=== PATIENT | female | born 1930 | race African-American/Black ===

== ENCOUNTER 2019-10-28 22:07 | Inpatient (IN) | payer MEDICARE ==
[~2019-10-28] VITALS: Ht 162.6 cm; Wt 47.2 kg
--- NOTE | 2019-10-28 22:34 | NUR ---
at bedside for MSE
[2019-10-28] MEDS ORDERED: HYDR2TAB4 PO (22:45)
[2019-10-28] MEDS ORDERED: CHOL10002 PO (22:45)
[2019-10-28] MEDS ORDERED: CLON0.1T PO (22:45)
[2019-10-28] MEDS ORDERED: MULT-1119 PO (22:45)
[2019-10-28] MEDS ORDERED: CALC-555 PO (22:45)
[2019-10-28] MEDS ORDERED: POTA10CA43 PO (22:45)
[2019-10-28] MEDS ORDERED: DOCU-141 PO (22:45)
[2019-10-28] MEDS ORDERED: ASCO500C18 PO (22:45)
[2019-10-28] MEDS ORDERED: ACET-2154 PO (22:45)
[2019-10-28] MEDS ORDERED: LOSA25TA27 PO (22:45)
[2019-10-28] MEDS ORDERED: CHOL400T32 PO (22:45)
[2019-10-28] MEDS ORDERED: FURO-152 PO (22:45)
[2019-10-28] MEDS ORDERED: DEXT15DR6 OP (22:45)
[2019-10-28] MEDS ORDERED: DILT-3 PO (22:45)
[2019-10-28] MEDS ORDERED: SENN-261 PO ×2 (22:45)
[2019-10-28 23:01] LABS: EOSINOPHILS # (AUTO) 0.1 K/uL (0.0-0.7); EOSINOPHILS % (AUTO) 1.1 % (0.0-7.0); LYMPHOCYTES # (AUTO) 0.7 K/uL (20.0-40.0); MEAN CORPUSCULAR VOLUME 87.3 fL (75.5-95.3); MONOCYTES # (AUTO) 1.3 K/uL (2.0-10.0)
[2019-10-28 23:03] LABS: CARBON DIOXIDE 34 mmol/L (21-32); CHLORIDE 98 mmol/L (98-107); CREATININE 2.3 mg/dL (0.6-1.3); GLUCOSE 100 mg/dL (74-106); POTASSIUM 3.9 mmol/L (3.5-5.1); UREA NITROGEN, BLOOD 31 mg/dL (7-18)
--- NOTE | 2019-10-28 23:05 | NUR ---
IV placed in right forearm 20 g saline locked, blood sent to lab
[2019-10-28 23:08] LABS: BASOPHILS % (AUTO) 0.2 % (0.0-2.0); HEMOGLOBIN 10.4 g/dL (10.9-14.3); LYMPHOCYTES % (AUTO) 7.7 % (20.5-51.5); MEAN CORPUSCULAR HEMOGLOBIN 28.3 uug (24.7-32.8); MEAN CORPUSCULAR HGB CONC 32 g/dL (32.3-35.6); MONOCYTES % (AUTO) 14.4 % (0.0-11.0); NEUTROPHILS # (AUTO) 7.1 K/uL (1.8-8.9); NEUTROPHILS % (AUTO) 76.6 % (38.5-71.5); PLATELET COUNT (AUTO) 276 K/uL (179-408); RED BLOOD CELL COUNT(AUTO) 3.67 MIL/uL (3.63-4.92); WHITE BLOOD COUNT (AUTO) 9.3 K/uL (3.8-11.8)
[2019-10-28 23:19] LABS: ALANINE AMINOTRANSFERASE 30 U/L (14-59); ALKALINE PHOSPHATASE 116 U/L (50-136); ASPARTATE AMINOTRANSFERASE 47 U/L (15-37); BILIRUBIN,DIRECT 0.1 mg/dL (0.0-0.2); BILIRUBIN,TOTAL 0.4 mg/dL (0.2-1.0); TOTAL PROTEIN, SERUM 8.1 g/dL (6.4-8.2)
[2019-10-28 23:34] LABS: *BILIRUBIN,URIN NEGATIVE (NEGATIVE); *BLOOD, URINE 1+ (NEGATIVE); *CLARITY,URINE CLEAR (CLEAR); *COLOR,URINE YELLOW (YELLOW); *KETONES,URINE NEGATIVE (NEGATIVE); *UROBILINOGEN,URINE 0.2 E.U./dl (NORMAL); LEUKOCYTE ESTERASE ,URINE NEGATIVE (NEGATIVE); NITRITE, URINE NEGATIVE (NEGATIVE); PH,URINE 5.5 (5.0-8.0); UGLUCOSE NEGATIVE (NEGATIVE)
--- NOTE | 2019-10-28 23:59 | NUR ---
no signs of distress noted
[2019-10-29] MEDS ORDERED: IV NS 1000 ML 1,000 ML IV ONE
[2019-10-29 00:17] LABS: BACTERIA,URINE NONE SEEN /HPF (NONE SEEN); SQUAMOUS EPITHELIAL CELL,UR MODERATE /HPF (NONE SEEN); WBC,URINE 0-3 /HPF (0-3)
--- NOTE | 2019-10-29 00:28 | NUR ---
IV fluids in progress, no complaints of N/V, no complaints of pain, no signs of distress noted
[2019-10-29] MEDS ORDERED: IV NS 1000 ML 1,000 ML IV PRN (00:34)
[2019-10-29] MEDS ORDERED: ACETAMINOPHEN 325 MG TABLET PO PRN (00:45)
[2019-10-29] MEDS ORDERED: Z GUARD REMEDY PASTE 57 GM TUBE TOP PRN (00:45)
[2019-10-29] MEDS ORDERED: TEMAZEPAM 7.5 MG CAPSULE PO PRN (00:45)
[2019-10-29] MEDS ORDERED: MAGNESIUM HYDROXIDE 30 ML LIQUID UDC PO PRN (00:45)
[2019-10-29] MEDS ORDERED: HYDROCODONE/APAP 5-325MG TABLET PO PRN (00:45)
--- NOTE | 2019-10-29 02:10 | NUR ---
ASSISTED TO RESTROOM AT THIS TIME, AWAITING RESULTS FOR COVID ANTIGEN TEST
--- NOTE | 2019-10-29 03:20 | NUR ---
patient noted resting in bed, no signs of distress, vitals WNL
--- NOTE | 2019-10-29 04:08 | NUR ---
report given to Wilbert RICE at this time
--- NOTE | 2019-10-29 04:25 | NUR ---
Pt. admitted to tele unit room 317 , under care of Dr. Mak Belongs List completed and all belonging sent with patient no signs of distress noted, vitals signs WNL
--- NOTE | 2019-10-29 04:30 | NUR ---
Received patient awake and alert x2. Patient shows no signs or symptoms of distress at this time. NSR on tele monitor. 20g IV heplock on right forearm. Pt complains of having nausea at facility but denies having any at this time. Admitting orders received from Dr. Underwood and will be carried out. Pt refuses to change into hospital gown at this time. Side rails x2 are up. Bed set to lowest position. Call light within reach. Will continue to monitor patient.
[2019-10-29 04:55] VITALS: BP 156/74
[2019-10-29] MEDS: PANTOPRAZOLE SODIUM 40 MG TABLET.DR PO SCH (06:26)
--- NOTE | 2019-10-29 06:31 | NUR ---
Patient shows no signs or symptoms of distress at this time. NSR on tele monitor. Will endorse patient to day shift nurse in stable condition.
--- NOTE | 2019-10-29 08:00 | NUR ---
Pt in bed awake AOx2 on O2 @ 2L sat 85-88%, increased to 3L 90%, denies SOB or dyspnea. Pt is hard of hearing, hearing aid not working d/t no battery, placed inside her walker. On tele SR denied chest pain. Oriented to room and unit. Bed locked in lowest position with siderails 2x up. Bed alarm on. Call light and phone within reach.
[2019-10-29 08:27] VITALS: BP 144/79
--- NOTE | 2019-10-29 09:57 | NUR ---
Informed Dr. Hermosillo to reconcile medications, aware
[2019-10-29] MEDS ORDERED: POLYVINYL ALCOHOL OPHT DROPS 15 ML BOTTLE EACHEYE PRN (14:00)
[2019-10-29] MEDS ORDERED: hydrALAZINE HCL 25 MG TABLET PO PRN ×2 (14:20→19:00)
[2019-10-29] MEDS: DILTIAZEM HCL CD 240 MG CAP.SR.24H PO SCH (15:07)
[2019-10-29 15:52] VITALS: BP 170/88
[2019-10-29] MEDS: DOCUSATE SODIUM 100 MG CAPSULE PO SCH (16:28)
[2019-10-29] MEDS: CALCIUM CARB/VITAMIN D 500MG-200UNITS TABLET PO SCH (16:28)
[2019-10-29] MEDS: CLONIDINE HCL 0.1 MG TABLET PO SCH (16:28)
[2019-10-29] MEDS ORDERED: FUROSEMIDE 20 MG/2 ML VIAL IV ONE (19:00)
[2019-10-29] MEDS ORDERED: AMLODIPINE 5 MG TABLET PO SCH (19:00)
--- NOTE | 2019-10-29 19:45 | NUR ---
Received patient asleep. Patient shows no signs or symptoms of distress at this time. NSR on tele monitor. Vital signs stable. Bed set to lowest position. Call light within reach. Side rails X2 are up. Will continue to monitor patient.
[2019-10-29 20:00] VITALS: BP 138/87
[2019-10-30] VITALS (7 sets, daily range): BP systolic 110–144; BP diastolic 67–77
[2019-10-30] MEDS: PANTOPRAZOLE SODIUM 40 MG TABLET.DR PO SCH (06:17)
--- NOTE | 2019-10-30 06:42 | NUR ---
Patient shows no signs or symptoms of distress at this time. Vital signs stable. NSR on tele monitor. Will endorse patient to day shift nurse in stable condition.
[2019-10-30 06:43] LABS: IRON, SERUM 33 ug/dL (50-175)
[2019-10-30 06:57] LABS: THYROID STIMULATING HORMONE 1.006 mIU/mL (0.358-3.740)
[2019-10-30 07:00] LABS: BASOPHILS % (AUTO) 0.8 % (0.0-2.0); EOSINOPHILS # (AUTO) 0.2 K/uL (0.0-0.7); EOSINOPHILS % (AUTO) 3.2 % (0.0-7.0); HEMATOCRIT 33.8 % (31.2-41.9); HEMOGLOBIN 10.8 g/dL (10.9-14.3); LYMPHOCYTES # (AUTO) 0.6 K/uL (20.0-40.0); LYMPHOCYTES % (AUTO) 10.5 % (20.5-51.5); MEAN CORPUSCULAR HEMOGLOBIN 28.2 uug (24.7-32.8); MEAN CORPUSCULAR HGB CONC 32 g/dL (32.3-35.6); MEAN CORPUSCULAR VOLUME 88.5 fL (75.5-95.3); MONOCYTES # (AUTO) 0.7 K/uL (2.0-10.0); MONOCYTES % (AUTO) 12.7 % (0.0-11.0); NEUTROPHILS # (AUTO) 4.3 K/uL (1.8-8.9); NEUTROPHILS % (AUTO) 72.8 % (38.5-71.5); PLATELET COUNT (AUTO) 288 K/uL (179-408); RED BLOOD CELL COUNT(AUTO) 3.82 MIL/uL (3.63-4.92); WHITE BLOOD COUNT (AUTO) 5.9 K/uL (3.8-11.8)
[2019-10-30 07:16] LABS: CARBON DIOXIDE 32 mmol/L (21-32); CHLORIDE 103 mmol/L (98-107); CREATININE 2.1 mg/dL (0.6-1.3); FERRITIN 186 ng/mL (8-252); GLUCOSE 80 mg/dL (74-106); MAGNESIUM 1.5 mg/dL (1.8-2.4); PHOSPHOROUS 4.7 mg/dL (2.5-4.9); POTASSIUM 4.1 mmol/L (3.5-5.1); UREA NITROGEN, BLOOD 25 mg/dL (7-18)
--- NOTE | 2019-10-30 08:00 | NUR ---
Pt in bed asleep, arousable to touch and light pain, AOx3. On O2 @ 2L with no SOB or distress noted at this time. On tele SR, denies chest pain. IV on left FA 22g flushed and patent. Bed locked in lowest position with siderails 2x up. Call light and telephone within reach.
[2019-10-30 08:09] LABS: ALANINE AMINOTRANSFERASE 30 U/L (14-59); ALKALINE PHOSPHATASE 106 U/L (50-136); ASPARTATE AMINOTRANSFERASE 45 U/L (15-37); BILIRUBIN,TOTAL 0.3 mg/dL (0.2-1.0); CARBON DIOXIDE 32 mmol/L (21-32); CHLORIDE 103 mmol/L (98-107); CHOLESTEROL 174 mg/dL (<200); CREATININE 2.1 mg/dL (0.6-1.3); GLUCOSE 82 mg/dL (74-106); HDL CHOLESTEROL 38 mg/dL (40-60); POTASSIUM 4.1 mmol/L (3.5-5.1); TOTAL PROTEIN, SERUM 7.7 g/dL (6.4-8.2); TRIGLYCERIDES 109 MG/DL (30-150); UREA NITROGEN, BLOOD 24 mg/dL (7-18)
[2019-10-30] MEDS: MAGNESIUM SULFATE/D5W 100 ML IV SCH ×2 (09:23→11:36)
[2019-10-30] MEDS: DOCUSATE SODIUM 100 MG CAPSULE PO SCH ×2 (09:31→17:00)
[2019-10-30] MEDS: DILTIAZEM HCL CD 240 MG CAP.SR.24H PO SCH (09:31)
[2019-10-30] MEDS: ASCORBIC ACID 500 MG TABLET PO SCH (09:31)
[2019-10-30] MEDS: CALCIUM CARB/VITAMIN D 500MG-200UNITS TABLET PO SCH ×3 (09:31→17:00)
[2019-10-30] MEDS: CHOLECALCIFEROL 1,000 UNIT TABLET PO SCH (09:32)
[2019-10-30] MEDS: CLONIDINE HCL 0.1 MG TABLET PO SCH ×2 (09:32→17:00)
[2019-10-30] MEDS: FOLIC ACID/VITAMIN B COMP W-C TABLET PO SCH (09:32)
[2019-10-30] MEDS: OMEGA-3 FATTY ACIDS/FISH OIL CAPSULE PO SCH (09:38)
[2019-10-30] MEDS: FUROSEMIDE 20 MG TABLET PO SCH (11:42)
--- NOTE | 2019-10-30 12:40 | NUR ---
took over care from Julian RN, pt awake alert/oriented x2, hard of hearing, follows commands, lunch tray served, explained plan of care, verbalized understanding within her capabilities, safety measures maintained
[2019-10-30] MEDS: ONDANSETRON 4 MG/2 ML VIAL IV PRN ×2 (14:44→23:53)
--- NOTE | 2019-10-30 14:44 | NUR ---
assisted to BR and voided, also complains of nausea after eating lunch- medicated with Zofran 4mg iv as prn with relief
--- NOTE | 2019-10-30 17:37 | NUR ---
resting in bed, denies of any complaints, call light within reach
--- NOTE | 2019-10-30 19:30 | NUR ---
Received patient lying in bed. AAOx2. In no acute distress. Denies any pain or SOB. On o2 at 2LPM via NC in place. O2 sat at 99%. VS WNL. SR on tele at 63/min. Left FA IV site intact and patent. Safety measure initiated and call ryan within reached.
[2019-10-31 00:02] VITALS: BP 125/63
[2019-10-31 04:50] VITALS: BP 127/62
[2019-10-31] MEDS: PANTOPRAZOLE SODIUM 40 MG TABLET.DR PO SCH (06:12)
--- NOTE | 2019-10-31 06:41 | NUR ---
Slept well last night. AAOx2. In no acute distress. Denies any pain or SOB. Remains on O2 at 2LPM via NC in place. O2 sat at 97%. SR and sinus onel on tele at between 50's to 60's/min. Left FA IV site intact and patent. Needs assessed and attended to. Safety measure maintained and call ryan within reached.
[2019-10-31 06:42] LABS: BASOPHILS % (AUTO) 0.5 % (0.0-2.0); EOSINOPHILS # (AUTO) 0.1 K/uL (0.0-0.7); EOSINOPHILS % (AUTO) 1.3 % (0.0-7.0); HEMATOCRIT 32.2 % (31.2-41.9); HEMOGLOBIN 10.1 g/dL (10.9-14.3); LYMPHOCYTES # (AUTO) 0.5 K/uL (20.0-40.0); LYMPHOCYTES % (AUTO) 8.1 % (20.5-51.5); MEAN CORPUSCULAR HEMOGLOBIN 27.9 uug (24.7-32.8); MEAN CORPUSCULAR HGB CONC 31 g/dL (32.3-35.6); MEAN CORPUSCULAR VOLUME 89.3 fL (75.5-95.3); MONOCYTES # (AUTO) 0.7 K/uL (2.0-10.0); MONOCYTES % (AUTO) 12.5 % (0.0-11.0); NEUTROPHILS # (AUTO) 4.6 K/uL (1.8-8.9); NEUTROPHILS % (AUTO) 77.6 % (38.5-71.5); PLATELET COUNT (AUTO) 259 K/uL (179-408); WHITE BLOOD COUNT (AUTO) 5.9 K/uL (3.8-11.8)
[2019-10-31 06:44] LABS: ALANINE AMINOTRANSFERASE 27 U/L (14-59); ALKALINE PHOSPHATASE 84 U/L (50-136); ASPARTATE AMINOTRANSFERASE 35 U/L (15-37); BILIRUBIN,TOTAL 0.3 mg/dL (0.2-1.0); CARBON DIOXIDE 38 mmol/L (21-32); CHLORIDE 103 mmol/L (98-107); CREATINE KINASE, TOTAL 115 U/L (26-192); CREATININE 2.2 mg/dL (0.6-1.3); GLUCOSE 100 mg/dL (74-106); MAGNESIUM 2.3 mg/dL (1.8-2.4); PHOSPHOROUS 5.9 mg/dL (2.5-4.9); POTASSIUM 4.1 mmol/L (3.5-5.1); TOTAL PROTEIN, SERUM 7.1 g/dL (6.4-8.2); UREA NITROGEN, BLOOD 25 mg/dL (7-18)
[2019-10-31 07:30] VITALS: BP 117/63
--- NOTE | 2019-10-31 08:00 | NUR ---
Received patient in bed, awake alert and verbally responsive. No signs of distress noted. Afebrile. No complain of pain or discomfort. kept clean and comfortable. kept the call light within easy reach. Will continue to monitor.
[2019-10-31] MEDS: FOLIC ACID/VITAMIN B COMP W-C TABLET PO SCH (08:03)
[2019-10-31] MEDS: DOCUSATE SODIUM 100 MG CAPSULE PO SCH ×2 (08:03→16:53)
[2019-10-31] MEDS: DILTIAZEM HCL CD 240 MG CAP.SR.24H PO SCH (08:03)
[2019-10-31] MEDS: OMEGA-3 FATTY ACIDS/FISH OIL CAPSULE PO SCH (08:03)
[2019-10-31] MEDS: CLONIDINE HCL 0.1 MG TABLET PO SCH ×2 (08:03→17:00)
[2019-10-31] MEDS: ASCORBIC ACID 500 MG TABLET PO SCH (08:03)
[2019-10-31] MEDS: CHOLECALCIFEROL 1,000 UNIT TABLET PO SCH (08:04)
[2019-10-31] MEDS: CALCIUM CARB/VITAMIN D 500MG-200UNITS TABLET PO SCH ×3 (08:04→16:52)
[2019-10-31] MEDS: FUROSEMIDE 20 MG TABLET PO SCH (08:04)
[2019-10-31 10:36] LABS: *BILIRUBIN,URIN NEGATIVE (NEGATIVE); *BLOOD, URINE NEGATIVE (NEGATIVE); *CLARITY,URINE SLIGHTLY CLOUDY (CLEAR); *COLOR,URINE YELLOW (YELLOW); *KETONES,URINE NEGATIVE (NEGATIVE); *UROBILINOGEN,URINE 0.2 E.U./dl (NORMAL); LEUKOCYTE ESTERASE ,URINE NEGATIVE (NEGATIVE); NITRITE, URINE NEGATIVE (NEGATIVE); UGLUCOSE NEGATIVE (NEGATIVE)
[2019-10-31 10:37] LABS: *CREATININE,URINE 71.2 mg/dL (30-125); *URINE TOTAL PROTEIN RANDOM 41.4 mg/dL (<150/24HR)
[2019-10-31 16:14] VITALS: BP 118/64
[2019-10-31 17:51] LABS: RBC,URINE 0-3 /HPF (0-3)
[2019-10-31 17:55] LABS: BACTERIA,URINE FEW /HPF (NONE SEEN); WBC,URINE NONE SEEN /HPF (0-3)
--- NOTE | 2019-10-31 18:13 | NUR ---
Patient in bed, awake and verbally responsive. No signs of distress noted. No SOB. On Oxygen at 1L via nasal canula, saturating 94%. All needs attended and met. Kept clean and comfortable. Will endorse to Oncoming Nurse.
[2019-10-31 20:00] VITALS: BP 103/57
--- NOTE | 2019-10-31 20:00 | NUR ---
Pt received into care, sitting up in bed, watching television. Pt is alert/oriented x2 and has no complaints of pain or discomfort at this time. All safety, allergy, and fall precaution measures are in place. Call light and personal items are within reach at all times. Will continue to monitor and assess.
--- NOTE | 2019-10-31 20:15 | NUR ---
Patient pulled out left FA IV cath. This nurse cleaned are and applied bandage. This nurse will replace removed IV.
--- NOTE | 2019-10-31 20:50 | NUR ---
This nurse spoke with pt's daughter, who is concerned that her mother is getting worse. Daughter also states that pt told her she isn't being given anything to eat other than broth and is begging for her daughter to pick her up. This nurse explained to daughter that, d/t pt's PMH of mild cognitive impairment, she may be a bit more confused than usual b/c she is not in her normal environment which as a predictable routine. This nurse reassured pt's daughter that she is given three meals and snacks each day that is commiserate with her prescribed diet and that pt has been noted to be eating 75-100% of her meals. This nurse also assured daughter that pt has been in good spirits since coming into this nurse's care and this nurse will continue to monitor her mom closely. Pt's daughter seemed to be more at ease after speaking with this nurse.
--- NOTE | 2019-10-31 21:00 | NUR ---
This nurse placed new IV cath in right forearm, 22g saline lock, and covered site with curlex to prevent pt from removing again.
--- NOTE | 2019-10-31 23:59 | NUR ---
Hand-off report given to DWAYNE Figueroa.
--- NOTE | 2019-11-01 | NUR ---
Report received from DWAYNE Olvera. Patient in bed, awake. AAOx2. Pt is hard of hearing on the left ear. Pt has no s/s of acute distress or pain at this time. V/S stable on 1L NC. RFA IV is intact and patent. Safety measures in place. Bed low and locked in position. Call light within reach. Will continue with the plan of care.
[2019-11-01 04:00] VITALS: BP 134/71
[2019-11-01] MEDS: PANTOPRAZOLE SODIUM 40 MG TABLET.DR PO SCH (06:17)
--- NOTE | 2019-11-01 06:45 | NUR ---
Pt slept intermittently through the night. Pt is awake and has no s/s of acute distress or pain at this time. V/S stable, on 1L NC at 96%. Comfort care and needs attended. Incontinence care provided. Repositioned for comfort. Aspiration and Fall precaution maintained. Safety measures in place. Bed low and locked in position. Bed alarm on. Personal belongings and call light within reach. Will endorse to the oncoming nurse accordingly.
[2019-11-01] MEDS: CALCIUM CARB/VITAMIN D 500MG-200UNITS TABLET PO SCH ×3 (08:00→16:04)
[2019-11-01] MEDS: OMEGA-3 FATTY ACIDS/FISH OIL CAPSULE PO SCH (08:00)
[2019-11-01] MEDS: DOCUSATE SODIUM 100 MG CAPSULE PO SCH ×2 (08:00→16:04)
[2019-11-01] MEDS: SEVELAMER CARBONATE 800 MG TABLET PO SCH ×3 (08:00→17:10)
[2019-11-01] MEDS: FOLIC ACID/VITAMIN B COMP W-C TABLET PO SCH (08:00)
[2019-11-01] MEDS: CHOLECALCIFEROL 1,000 UNIT TABLET PO SCH (08:00)
[2019-11-01] MEDS: ASCORBIC ACID 500 MG TABLET PO SCH (08:00)
[2019-11-01] MEDS: CLONIDINE HCL 0.1 MG TABLET PO SCH ×2 (08:01→16:09)
[2019-11-01] MEDS: DILTIAZEM HCL CD 240 MG CAP.SR.24H PO SCH (08:01)
[2019-11-01] MEDS ORDERED: BARIUM SULFATE 450 ML ORAL.SUSP ONE (09:36)
[2019-11-01 12:19] VITALS: BP 143/89
[2019-11-01 15:32] VITALS: BP 140/69
[2019-11-01] MEDS ORDERED: CALC-555 PO (17:53)
[2019-11-01] MEDS ORDERED: ASCO500T21 PO (17:53)
[2019-11-01] MEDS ORDERED: OMEG1CAP PO (17:53)
[2019-11-01] MEDS ORDERED: CHOL10002 PO (17:53)
[2019-11-01] MEDS ORDERED: TEMA7.5C PO (17:53)
[2019-11-01] MEDS ORDERED: HYDR-894 PO (17:53)
[2019-11-01] MEDS ORDERED: POLY15DR27 EACHEYE (17:53)
[2019-11-01] MEDS ORDERED: MENT71OI TOP (17:53)
[2019-11-01] MEDS ORDERED: ACET325T53 PO (17:53)
[2019-11-01] MEDS ORDERED: PANT40TA2 PO (17:53)
[2019-11-01] MEDS ORDERED: HYDR-3972 PO (17:53)
[2019-11-01] MEDS ORDERED: SEVE800T7 PO (17:53)
[2019-11-01] MEDS ORDERED: FURO20TA4 PO (17:53)
--- NOTE | 2019-11-01 18:28 | NUR ---
dc orders received noted and carried out,dc instruction and education given to the pt,pt refusing to sign the dc paper ,dc pt to aru via wheel chair in stable condition
[2019-11-01 20:24] VITALS: BP 118/59
[2019-11-02 05:54] LABS: BASOPHILS % (AUTO) 0.4 % (0.0-2.0); EOSINOPHILS # (AUTO) 0.1 K/uL (0.0-0.7); HEMATOCRIT 30.5 % (31.2-41.9); HEMOGLOBIN 9.7 g/dL (10.9-14.3); LYMPHOCYTES # (AUTO) 0.7 K/uL (20.0-40.0); LYMPHOCYTES % (AUTO) 9.7 % (20.5-51.5); MEAN CORPUSCULAR HEMOGLOBIN 27.8 uug (24.7-32.8); MEAN CORPUSCULAR HGB CONC 32 g/dL (32.3-35.6); MEAN CORPUSCULAR VOLUME 87.8 fL (75.5-95.3); MONOCYTES # (AUTO) 0.8 K/uL (2.0-10.0); MONOCYTES % (AUTO) 11.5 % (0.0-11.0); NEUTROPHILS # (AUTO) 5.4 K/uL (1.8-8.9); NEUTROPHILS % (AUTO) 76.4 % (38.5-71.5); PLATELET COUNT (AUTO) 233 K/uL (179-408); RED BLOOD CELL COUNT(AUTO) 3.47 MIL/uL (3.63-4.92); WHITE BLOOD COUNT (AUTO) 7.1 K/uL (3.8-11.8)
[2019-11-02 06:06] LABS: ALANINE AMINOTRANSFERASE 24 U/L (14-59); ALKALINE PHOSPHATASE 88 U/L (50-136); ASPARTATE AMINOTRANSFERASE 30 U/L (15-37); BILIRUBIN,TOTAL 0.4 mg/dL (0.2-1.0); CARBON DIOXIDE 38 mmol/L (21-32); CHLORIDE 98 mmol/L (98-107); CREATININE 2.5 mg/dL (0.6-1.3); GLUCOSE 93 mg/dL (74-106); MAGNESIUM 1.8 mg/dL (1.8-2.4); PHOSPHOROUS 3.5 mg/dL (2.5-4.9); POTASSIUM 3.9 mmol/L (3.5-5.1); TOTAL PROTEIN, SERUM 6.9 g/dL (6.4-8.2); UREA NITROGEN, BLOOD 32 mg/dL (7-18)
[2019-11-02] MEDS ORDERED: PROTEIN SUPPLEMENT (PROSTAT) 30 ML LIQUID PO SCH (08:00)
[2019-11-02] MEDS ORDERED: FUROSEMIDE 20 MG TABLET PO SCH (09:00)
[2019-11-04 06:06] LABS: A/G RATIO 0.6 (0.7-1.7); ALBUMIN 2.5 g/dL (2.9-4.4); ALPHA-1-GLOBULIN 0.3 g/dL (0.0-0.4); ALPHA-2-GLOBULIN 0.8 g/dL (0.4-1.0); BETA GLOBULIN 1.3 g/dL (0.7-1.3); GAMMA GLOBULIN 1.6 g/dL (0.4-1.8); M-SPIKE Not Observed g/dL (Not Observed)
== END 2019-11-01 19:00 | DRG 682 ==
LOC: ER 22:13 → TELE3 10-29 04:12 → MEDSURG3 10-31 08:42
PROVIDERS: ADMIT Internal Medicine; ATTEND Internal Medicine
DX: N17.0 Acute kidney failure with tubular necrosis (principal); E43 Unspecified severe protein-calorie malnutrition; G92 Toxic encephalopathy; I50.33 Acute on chronic diastolic (congestive) heart failure; I13.0 Hypertensive heart and chronic kidney disease with heart failure and stage 1 through stage 4 chronic kidney disease, or unspecified chronic kidney disease; D68.69 Other thrombophilia; Z68.1 Body mass index [BMI] 19.9 or less, adult; M48.56XA Collapsed vertebra, not elsewhere classified, lumbar region, initial encounter for fracture; N18.9 Chronic kidney disease, unspecified; I27.20 Pulmonary hypertension, unspecified; F03.90 Unspecified dementia, unspecified severity, without behavioral disturbance, psychotic disturbance, mood disturbance, and anxiety; F17.210 Nicotine dependence, cigarettes, uncomplicated; I25.10 Atherosclerotic heart disease of native coronary artery without angina pectoris; I67.2 Cerebral atherosclerosis; M81.0 Age-related osteoporosis without current pathological fracture; K21.9 Gastro-esophageal reflux disease without esophagitis; Z87.440 Personal history of urinary (tract) infections; J44.9 Chronic obstructive pulmonary disease, unspecified; D63.8 Anemia in other chronic diseases classified elsewhere; R62.7 Adult failure to thrive; R13.10 Dysphagia, unspecified; K92.2 Gastrointestinal hemorrhage, unspecified; M10.9 Gout, unspecified; M19.90 Unspecified osteoarthritis, unspecified site; N25.0 Renal osteodystrophy; I07.1 Rheumatic tricuspid insufficiency; R31.9 Hematuria, unspecified
CPT/HCPCS: 36415; 70030-TC; 70450; 71045; 76770; 82378; 83550; 83605; 83735; 83970; 84100; 84155; 84156; 84165; 84300; 84443; 85025; 85730; 87040; 87086; 93005; 93307; A4663; G0378; J1940; J2405; J3475; J7030; Q9951

== ENCOUNTER 2019-11-01 10:44 | Inpatient (IN) | payer MEDICARE ==
[~2019-11-01] VITALS: Ht 162.6 cm; Wt 47.6 kg
[~2019-11-01 10:44] MED LIST: ACET-2154 PO; ASCO500C18 PO; CALC-555 PO; CHOL10002 PO; CHOL400T32 PO; CLON0.1T PO; DEXT15DR6 OP; DILT-3 PO; DOCU-141 PO; FURO-152 PO; HYDR2TAB4 PO; LOSA25TA27 PO; MULT-1119 PO; POTA10CA43 PO; SENN-261 PO
[2019-11-01] MEDS ORDERED: HYDR-894 PO (17:53)
[2019-11-01] MEDS ORDERED: PANT40TA2 PO (17:53)
[2019-11-01] MEDS ORDERED: ACET325T53 PO (17:53)
[2019-11-01] MEDS ORDERED: ASCO500T21 PO (17:53)
[2019-11-01] MEDS ORDERED: CHOL10002 PO (17:53)
[2019-11-01] MEDS ORDERED: CALC-555 PO (17:53)
[2019-11-01] MEDS ORDERED: MENT71OI TOP (17:53)
[2019-11-01] MEDS ORDERED: OMEG1CAP PO (17:53)
[2019-11-01] MEDS ORDERED: HYDR-3972 PO (17:53)
[2019-11-01] MEDS ORDERED: TEMA7.5C PO (17:53)
[2019-11-01] MEDS ORDERED: FURO20TA4 PO (17:53)
[2019-11-01] MEDS ORDERED: SEVE800T7 PO (17:53)
[2019-11-01] MEDS ORDERED: POLY15DR27 EACHEYE (17:53)
--- NOTE | 2019-11-01 19:40 | NUR ---
Received patient in bed, half awake, alert and oriented x 2, able to follow command. Able to make needs known. Safety measures and fall prevention maintained. Continue care as planned.
[2019-11-01] MEDS ORDERED: Z GUARD REMEDY PASTE 57 GM TUBE TOP PRN (20:00)
[2019-11-01] MEDS ORDERED: TEMAZEPAM 7.5 MG CAPSULE PO PRN (20:00)
[2019-11-01] MEDS ORDERED: POLYVINYL ALCOHOL OPHT DROPS 15 ML BOTTLE EACHEYE PRN (20:00)
[2019-11-01] MEDS ORDERED: ACETAMINOPHEN 325 MG TABLET PO PRN (20:00)
[2019-11-01] MEDS ORDERED: hydrALAZINE HCL 25 MG TABLET PO PRN (20:00)
[2019-11-01] MEDS: SENNOSIDES 1 TABLET PO SCH (21:00)
--- NOTE | 2019-11-02 01:56 | NUR ---
Admission process performed. Plan of care initiated . Safety measures maintained.
[2019-11-02 05:28] VITALS: BP 131/62
[2019-11-02] MEDS: PANTOPRAZOLE SODIUM 40 MG TABLET.DR PO SCH (05:35)
--- NOTE | 2019-11-02 05:59 | NUR ---
Shift End Report: Slept good. No complaint presented all night. Hard to convinced to take anything oral. Swallows good. All needs attended and met. No fall/injury. No significant event reported. Continue current rehab plan of care.
[2019-11-02 07:30] VITALS: BP 144/79
[2019-11-02] MEDS: DOCUSATE SODIUM 100 MG CAPSULE PO SCH ×2 (08:08→16:02)
[2019-11-02] MEDS: OMEGA-3 FATTY ACIDS/FISH OIL CAPSULE PO SCH (08:08)
[2019-11-02] MEDS: MULTIVITAMINS,THERAPEUTIC TABLET PO SCH (08:08)
[2019-11-02] MEDS: DILTIAZEM HCL CD 240 MG CAP.SR.24H PO SCH (08:08)
[2019-11-02] MEDS: CHOLECALCIFEROL 1,000 UNIT TABLET PO SCH (08:08)
[2019-11-02] MEDS: CALCIUM CARB/VITAMIN D 500MG-200UNITS TABLET PO SCH (08:08)
[2019-11-02] MEDS: CLONIDINE HCL 0.1 MG TABLET PO SCH ×2 (08:08→16:02)
[2019-11-02] MEDS: ASCORBIC ACID 500 MG TABLET PO SCH (08:08)
[2019-11-02] MEDS: SEVELAMER CARBONATE 800 MG TABLET PO SCH ×3 (08:08→17:15)
[2019-11-02 16:00] VITALS: BP 123/63
[2019-11-02 20:03] VITALS: BP 117/59
[2019-11-02] MEDS: SENNOSIDES 1 TABLET PO SCH (21:18)
--- NOTE | 2019-11-03 05:16 | NUR ---
PATIENT AAOX2. NO S/S OF ACUTE DISTRESS NOTED. V/S STABLE. ON NC 1L SAT AT 96%. SAFETY PRECAUTIONS IN PLACE. ALL MEDICATIONS ADMINISTERED WITH ASE. WILL CONTINUE TO MONITOR AND ASSESS UNTIL MORNING ENDORSEMENT TO NURSE.
[2019-11-03] MEDS: PANTOPRAZOLE SODIUM 40 MG TABLET.DR PO SCH (06:02)
[2019-11-03 06:30] VITALS: BP 116/60
[2019-11-03] MEDS: ASCORBIC ACID 500 MG TABLET PO SCH (09:18)
[2019-11-03] MEDS: SEVELAMER CARBONATE 800 MG TABLET PO SCH ×3 (09:18→18:32)
[2019-11-03] MEDS: OMEGA-3 FATTY ACIDS/FISH OIL CAPSULE PO SCH (09:18)
[2019-11-03] MEDS: CALCIUM CARB/VITAMIN D 500MG-200UNITS TABLET PO SCH (09:18)
[2019-11-03] MEDS: FUROSEMIDE 20 MG TABLET PO SCH (09:19)
[2019-11-03] MEDS: CLONIDINE HCL 0.1 MG TABLET PO SCH ×2 (09:19→18:32)
[2019-11-03] MEDS: CHOLECALCIFEROL 1,000 UNIT TABLET PO SCH (09:19)
[2019-11-03] MEDS: MULTIVITAMINS,THERAPEUTIC TABLET PO SCH (09:19)
[2019-11-03] MEDS: DOCUSATE SODIUM 100 MG CAPSULE PO SCH ×2 (09:19→18:32)
[2019-11-03] MEDS: DILTIAZEM HCL CD 240 MG CAP.SR.24H PO SCH (09:20)
[2019-11-03 19:24] VITALS: BP 164/69
[2019-11-03 19:50] VITALS: BP 138/75
[2019-11-03] MEDS: SENNOSIDES 1 TABLET PO SCH (20:25)
--- NOTE | 2019-11-04 03:14 | NUR ---
Received patient in bed, AAO x3. No acute distress or SOB was noted. On O2 1L via NC. No complain of pain. Patient is hard of hearing. All due medications administered and well tolerated. Lubricant applied to skin. Physical assessment done. All needs attended promptly. Safety measures maintained. Fall prevention maintained. Bed in lock position, Side rails up x2 for safety. Continue to monitor and will endorse to oncoming nurse accordingly.
[2019-11-04] MEDS: PANTOPRAZOLE SODIUM 40 MG TABLET.DR PO SCH (06:29)
[2019-11-04 06:50] VITALS: BP 131/78
[2019-11-04 06:55] LABS: BASOPHILS % (AUTO) 0.5 % (0.0-2.0); EOSINOPHILS # (AUTO) 0.2 K/uL (0.0-0.7); EOSINOPHILS % (AUTO) 3.1 % (0.0-7.0); HEMOGLOBIN 9.5 g/dL (10.9-14.3); LYMPHOCYTES # (AUTO) 0.7 K/uL (20.0-40.0); LYMPHOCYTES % (AUTO) 10.4 % (20.5-51.5); MEAN CORPUSCULAR HEMOGLOBIN 27.7 uug (24.7-32.8); MEAN CORPUSCULAR HGB CONC 32 g/dL (32.3-35.6); MEAN CORPUSCULAR VOLUME 87.8 fL (75.5-95.3); MONOCYTES # (AUTO) 0.8 K/uL (2.0-10.0); MONOCYTES % (AUTO) 12.5 % (0.0-11.0); NEUTROPHILS # (AUTO) 4.8 K/uL (1.8-8.9); NEUTROPHILS % (AUTO) 73.5 % (38.5-71.5); PLATELET COUNT (AUTO) 207 K/uL (179-408); RED BLOOD CELL COUNT(AUTO) 3.42 MIL/uL (3.63-4.92); WHITE BLOOD COUNT (AUTO) 6.5 K/uL (3.8-11.8)
[2019-11-04 07:13] LABS: ALANINE AMINOTRANSFERASE 18 U/L (14-59); ALKALINE PHOSPHATASE 81 U/L (50-136); ASPARTATE AMINOTRANSFERASE 21 U/L (15-37); BILIRUBIN,TOTAL 0.3 mg/dL (0.2-1.0); CARBON DIOXIDE 38 mmol/L (21-32); CHLORIDE 99 mmol/L (98-107); CREATININE 2.3 mg/dL (0.6-1.3); GLUCOSE 86 mg/dL (74-106); POTASSIUM 3.9 mmol/L (3.5-5.1); TOTAL PROTEIN, SERUM 6.8 g/dL (6.4-8.2); UREA NITROGEN, BLOOD 35 mg/dL (7-18)
[2019-11-04] MEDS: SEVELAMER CARBONATE 800 MG TABLET PO SCH ×3 (08:35→17:24)
[2019-11-04] MEDS: ASCORBIC ACID 500 MG TABLET PO SCH (08:35)
[2019-11-04] MEDS: MULTIVITAMINS,THERAPEUTIC TABLET PO SCH (08:36)
[2019-11-04] MEDS: DILTIAZEM HCL CD 240 MG CAP.SR.24H PO SCH (08:36)
[2019-11-04] MEDS: CLONIDINE HCL 0.1 MG TABLET PO SCH ×2 (08:36→17:24)
[2019-11-04] MEDS: CALCIUM CARB/VITAMIN D 500MG-200UNITS TABLET PO SCH (08:36)
[2019-11-04] MEDS: DOCUSATE SODIUM 100 MG CAPSULE PO SCH ×2 (08:36→17:24)
[2019-11-04] MEDS: CHOLECALCIFEROL 1,000 UNIT TABLET PO SCH (08:37)
[2019-11-04] MEDS: OMEGA-3 FATTY ACIDS/FISH OIL CAPSULE PO SCH (08:41)
[2019-11-04 10:44] VITALS: BP 143/74
--- NOTE | 2019-11-04 13:05 | NUR ---
Received patient awake in bed in stable condition. Patient continue therapy for increase strenght and therapeutic exercises. tolerated well. Patient ambulate with walker with assist. tolerated well. no complaint of pain/discomfort. not in distress. will continue monitor
--- NOTE | 2019-11-04 14:49 | NUR ---
Patient for podiatry consult for toenail. Occupational Therapy Aide for the day made aware.
[2019-11-04 16:29] VITALS: BP 129/60
[2019-11-04] MEDS: SENNOSIDES 1 TABLET PO SCH (20:38)
[2019-11-04 20:46] VITALS: BP 112/55
--- NOTE | 2019-11-04 21:24 | NUR ---
Received pt sleeping in bed. Aroused easily to verbal stimuli. Alert and oriented x2-3. No acute distress noted. Denies pain/ discomfort. Due med given as ordered. Safety measures maintained. Call light and personal items within reach. Will continue to monitor.
--- NOTE | 2019-11-04 23:06 | NUR ---
INDIVIDUALIZED PLAN OF CARE
[2019-11-05 04:42] VITALS: BP 129/65
[2019-11-05] MEDS: PANTOPRAZOLE SODIUM 40 MG TABLET.DR PO SCH (06:13)
[2019-11-05 07:30] VITALS: BP 143/64
[2019-11-05] MEDS: CALCIUM CARB/VITAMIN D 500MG-200UNITS TABLET PO SCH (08:36)
[2019-11-05] MEDS: MULTIVITAMINS,THERAPEUTIC TABLET PO SCH (08:37)
[2019-11-05] MEDS: CHOLECALCIFEROL 1,000 UNIT TABLET PO SCH (08:37)
[2019-11-05] MEDS: SEVELAMER CARBONATE 800 MG TABLET PO SCH ×3 (08:37→17:36)
[2019-11-05] MEDS: DOCUSATE SODIUM 100 MG CAPSULE PO SCH ×2 (08:37→16:41)
[2019-11-05] MEDS: ASCORBIC ACID 500 MG TABLET PO SCH (08:39)
[2019-11-05] MEDS: OMEGA-3 FATTY ACIDS/FISH OIL CAPSULE PO SCH (08:39)
[2019-11-05] MEDS: FUROSEMIDE 20 MG TABLET PO SCH (08:39)
[2019-11-05] MEDS: CLONIDINE HCL 0.1 MG TABLET PO SCH ×2 (08:47→16:41)
[2019-11-05] MEDS: DILTIAZEM HCL CD 240 MG CAP.SR.24H PO SCH (08:48)
[2019-11-05] MEDS ORDERED: LACTULOSE 20 G/30 ML LIQUID UDC PO PRN ×2 (14:45)
--- NOTE | 2019-11-05 15:49 | NUR ---
patient is alert, oriented x3, forgetfull, no sob,resp even nonlabord,skin warm and dry to touch, patient is ambulatory with supervision, no distress noted, participated with rehab services, tolerated well.
[2019-11-05 16:00] VITALS: BP 122/60
--- NOTE | 2019-11-05 19:30 | NUR ---
Received Patient in bed awake alert x 3 , on O2 inhalation @ 2LPM via NC,denies pain or discomfort at this time , no s/s of distress noted.Assisted to restroom with the use of FWW.BM good.Compliant with medication and safety.Call light with in reach.Will continue to monitor.
[2019-11-05 20:19] VITALS: BP 121/62
[2019-11-05] MEDS: SENNOSIDES 1 TABLET PO SCH (21:04)
[2019-11-06 05:09] VITALS: BP 141/67
[2019-11-06] MEDS: PANTOPRAZOLE SODIUM 40 MG TABLET.DR PO SCH (06:02)
--- NOTE | 2019-11-06 06:32 | NUR ---
Patient awake alert and forgetful re-orientation given, no distress noted, due meds given and tolerated well .PAtient has hard of hearing on left ear.Hearing aid applied.All needs are met.Safety measures are in place.Call light within reach.
[2019-11-06 07:36] VITALS: BP 119/71
[2019-11-06] MEDS: CALCIUM CARB/VITAMIN D 500MG-200UNITS TABLET PO SCH (08:26)
[2019-11-06] MEDS: DOCUSATE SODIUM 100 MG CAPSULE PO SCH ×2 (08:26→16:50)
[2019-11-06] MEDS: OMEGA-3 FATTY ACIDS/FISH OIL CAPSULE PO SCH (08:26)
[2019-11-06] MEDS: SEVELAMER CARBONATE 800 MG TABLET PO SCH ×3 (08:26→17:01)
[2019-11-06] MEDS: DILTIAZEM HCL CD 240 MG CAP.SR.24H PO SCH (08:27)
[2019-11-06] MEDS: MULTIVITAMINS,THERAPEUTIC TABLET PO SCH (08:27)
[2019-11-06] MEDS: ASCORBIC ACID 500 MG TABLET PO SCH (08:27)
[2019-11-06] MEDS: CHOLECALCIFEROL 1,000 UNIT TABLET PO SCH (08:27)
[2019-11-06] MEDS: CLONIDINE HCL 0.1 MG TABLET PO SCH ×2 (08:28→16:50)
[2019-11-06 14:56] VITALS: BP 134/61
[2019-11-06] MEDS ORDERED: ONDANSETRON ODT 4 MG TAB.RAPDIS SL PRN (17:30)
--- NOTE | 2019-11-06 18:36 | NUR ---
patient is alert, oriented x4, with episodes of forgetful, no sob, resp even nonlabored, skin warm and dry to touch, patient stated she feels nauseous, Zofran given as ordered, effective, able to eat dinner well, and tolerate well, tolerated PT, OT services well, no acute distress noted
--- NOTE | 2019-11-06 18:38 | NUR ---
daughter brought second new hearing aid and artists' booking representative, added to belonging list, patient has now two hearing aids for same left ear. endorsed to next shift.
--- NOTE | 2019-11-06 19:30 | NUR ---
In bed with HOB elevated with continuos O2 at 2L via NC saturating 97% at this time. No s/s of respiratory distress. Safety measures and fall prevention maintained. Continue care as planned.
[2019-11-06 20:25] VITALS: BP 112/55
[2019-11-06] MEDS: SENNOSIDES 1 TABLET PO SCH (20:30)
[2019-11-07 04:33] VITALS: BP 124/62
--- NOTE | 2019-11-07 05:29 | NUR ---
Shift End Report: Slept well. No complaint presented throughout the night. No fall/injury. All needs attended and met. No significant event report. VS stable. Continue current rehab plan of care.
[2019-11-07] MEDS: PANTOPRAZOLE SODIUM 40 MG TABLET.DR PO SCH (06:43)
[2019-11-07 08:00] VITALS: BP 148/65
[2019-11-07] MEDS: ASCORBIC ACID 500 MG TABLET PO SCH (08:34)
[2019-11-07] MEDS: MULTIVITAMINS,THERAPEUTIC TABLET PO SCH (08:34)
[2019-11-07] MEDS: CALCIUM CARB/VITAMIN D 500MG-200UNITS TABLET PO SCH (08:34)
[2019-11-07] MEDS: OMEGA-3 FATTY ACIDS/FISH OIL CAPSULE PO SCH (08:34)
[2019-11-07] MEDS: SEVELAMER CARBONATE 800 MG TABLET PO SCH ×3 (08:34→17:18)
[2019-11-07] MEDS: CLONIDINE HCL 0.1 MG TABLET PO SCH ×2 (08:34→17:21)
[2019-11-07] MEDS: CHOLECALCIFEROL 1,000 UNIT TABLET PO SCH (08:34)
[2019-11-07] MEDS: DOCUSATE SODIUM 100 MG CAPSULE PO SCH ×2 (08:35→17:18)
[2019-11-07] MEDS: FUROSEMIDE 20 MG TABLET PO SCH (08:35)
[2019-11-07] MEDS: DILTIAZEM HCL CD 240 MG CAP.SR.24H PO SCH (08:35)
--- NOTE | 2019-11-07 08:45 | NUR ---
Patient awake, alert, sitting up on bed, just done with breakfast, not in any form of distress, on oxygen at 1 LPM via NC. She denies any pain or discomfort. Due medications administered and tolerated well. Call light and frequently used items placed within patient's reach. Safety measures maintained.
[2019-11-07 15:29] VITALS: BP 132/69
[2019-11-07 20:24] VITALS: BP 121/61
[2019-11-07] MEDS: SENNOSIDES 1 TABLET PO SCH (21:03)
--- NOTE | 2019-11-07 21:43 | NUR ---
Awake alert and oriented x2-3 Patient [place] on left ear. hearing aid on. Fall precautions maintained. Siderails up for safety. Call ryan within reach. On O2 @ 1L via nasal cannula. pulse ox 99%. Incontinent of bowel and bladder. Kept clean and dry. No BM noted this shift. Kept comfortable. Attended to needs. Will monitor patient.
[2019-11-08 04:00] VITALS: BP 121/57
[2019-11-08] MEDS: PANTOPRAZOLE SODIUM 40 MG TABLET.DR PO SCH (06:14)
--- NOTE | 2019-11-08 06:33 | NUR ---
End of the shift notes: quiet night. AAOx2. VSS No acute distress noted. Will monitor patient. Incontinent of urine. Kept clean and dry. Complained of bilateral eyes dryness, Artificial tears given as ordered. Will monitor patient. Siderails up for safety.
[2019-11-08] MEDS: SEVELAMER CARBONATE 800 MG TABLET PO SCH ×3 (08:50→17:11)
[2019-11-08] MEDS: CHOLECALCIFEROL 1,000 UNIT TABLET PO SCH (08:51)
[2019-11-08] MEDS: CALCIUM CARB/VITAMIN D 500MG-200UNITS TABLET PO SCH (08:51)
[2019-11-08] MEDS: MULTIVITAMINS,THERAPEUTIC TABLET PO SCH (08:51)
[2019-11-08] MEDS: DOCUSATE SODIUM 100 MG CAPSULE PO SCH ×2 (08:51→17:11)
[2019-11-08] MEDS: CLONIDINE HCL 0.1 MG TABLET PO SCH ×2 (08:51→17:12)
[2019-11-08] MEDS: OMEGA-3 FATTY ACIDS/FISH OIL CAPSULE PO SCH (08:51)
[2019-11-08] MEDS: ASCORBIC ACID 500 MG TABLET PO SCH (08:52)
[2019-11-08] MEDS: DILTIAZEM HCL CD 240 MG CAP.SR.24H PO SCH (08:52)
[2019-11-08 08:55] VITALS: BP 141/64
--- NOTE | 2019-11-08 09:19 | NUR ---
Patient is AAO x 2-3, NO acute distress noted. Verbally able to express needs. Vital signs stable for patient. Due morning meds administered as ordered and scheduled and tolerated well. Patient stated having a headache and Tylenol 650mg PO 2 tabs PRN administered as ordered. Pt. is on PT/OT therapy;very compliant with care. Skin intact and dry. Safety needs in place and will continue with care.
[2019-11-08 15:26] VITALS: BP 129/61
--- NOTE | 2019-11-08 16:52 | NUR ---
Patient in bed and resting comfortably at this time. NO acute distress. Patient was up with PT/OT. Able to walk with one person assist. Denies any pain at this time and will continue with care.
[2019-11-08] MEDS: SENNOSIDES 1 TABLET PO SCH (20:11)
[2019-11-08 20:30] VITALS: BP 139/67
[2019-11-09 04:36] VITALS: BP 149/69
[2019-11-09] MEDS: PANTOPRAZOLE SODIUM 40 MG TABLET.DR PO SCH (06:25)
[2019-11-09 08:00] VITALS: BP 155/71
[2019-11-09] MEDS: FUROSEMIDE 20 MG TABLET PO SCH (08:05)
[2019-11-09] MEDS: CALCIUM CARB/VITAMIN D 500MG-200UNITS TABLET PO SCH (08:05)
[2019-11-09] MEDS: DOCUSATE SODIUM 100 MG CAPSULE PO SCH ×2 (08:05→16:17)
[2019-11-09] MEDS: MULTIVITAMINS,THERAPEUTIC TABLET PO SCH (08:05)
[2019-11-09] MEDS: OMEGA-3 FATTY ACIDS/FISH OIL CAPSULE PO SCH (08:05)
[2019-11-09] MEDS: SEVELAMER CARBONATE 800 MG TABLET PO SCH ×3 (08:05→17:09)
[2019-11-09] MEDS: CHOLECALCIFEROL 1,000 UNIT TABLET PO SCH (08:05)
[2019-11-09] MEDS: CLONIDINE HCL 0.1 MG TABLET PO SCH ×2 (08:06→16:17)
[2019-11-09] MEDS: ASCORBIC ACID 500 MG TABLET PO SCH (08:06)
[2019-11-09] MEDS: DILTIAZEM HCL CD 240 MG CAP.SR.24H PO SCH (08:06)
[2019-11-09 15:06] VITALS: BP 116/58
--- NOTE | 2019-11-09 19:25 | NUR ---
Patient alert oriented, no sob no chest pain. Patient has no complain of pain at this time. Patient ambulate to bathroom with assist by staff for bowel and bladder elimination. cont to monitor.
[2019-11-09] MEDS: SENNOSIDES 1 TABLET PO SCH (20:11)
[2019-11-09 20:24] VITALS: BP 131/65
[2019-11-10] MEDS: PANTOPRAZOLE SODIUM 40 MG TABLET.DR PO SCH (06:41)
[2019-11-10 06:42] VITALS: BP 144/63
--- NOTE | 2019-11-10 06:53 | NUR ---
Patient slept most of the night, assisted with toileting, kept comfortable, no complain of pain, cont to monitor.
[2019-11-10 08:00] VITALS: BP 148/73
[2019-11-10] MEDS: SEVELAMER CARBONATE 800 MG TABLET PO SCH ×3 (09:03→18:40)
[2019-11-10] MEDS: CALCIUM CARB/VITAMIN D 500MG-200UNITS TABLET PO SCH (09:35)
[2019-11-10] MEDS: MULTIVITAMINS,THERAPEUTIC TABLET PO SCH (09:35)
[2019-11-10] MEDS: CLONIDINE HCL 0.1 MG TABLET PO SCH ×2 (09:35→17:44)
[2019-11-10] MEDS: OMEGA-3 FATTY ACIDS/FISH OIL CAPSULE PO SCH (09:35)
[2019-11-10] MEDS: DOCUSATE SODIUM 100 MG CAPSULE PO SCH ×2 (09:35→17:44)
[2019-11-10] MEDS: CHOLECALCIFEROL 1,000 UNIT TABLET PO SCH (09:35)
[2019-11-10] MEDS: ASCORBIC ACID 500 MG TABLET PO SCH (09:35)
[2019-11-10] MEDS: DILTIAZEM HCL CD 240 MG CAP.SR.24H PO SCH (09:36)
--- NOTE | 2019-11-10 10:00 | NUR ---
Received patient in bed, IN NO acute distress. Patient is AAO x 2-3, verbally able to express needs. Vital signs stable Due medications administered as ordered and scheduled and tolerated well. Patient on continuous PT/OT therapy. Skin kept clean and dry. Needs attended and will continue with care.
[2019-11-10 16:45] VITALS: BP 125/61
--- NOTE | 2019-11-10 18:43 | NUR ---
In stable condition, no SOB noted. VS stable. Evening meds administered and tolerated well. Safety measures in place, call light left at bed side and will continue with care.
[2019-11-10 19:36] VITALS: BP 103/76
--- NOTE | 2019-11-10 19:40 | NUR ---
Sleeping comfortably during initial rounds with HOB elevated with continuos O2 at 1L via NC saturating 95% at this time. No s/s of respiratory distress. Safety measures and fallprevention maintained. Continue care as planned.
[2019-11-10] MEDS: SENNOSIDES 1 TABLET PO SCH (20:36)
[2019-11-11 05:20] VITALS: BP 120/61
[2019-11-11] MEDS: PANTOPRAZOLE SODIUM 40 MG TABLET.DR PO SCH (06:09)
--- NOTE | 2019-11-11 06:23 | NUR ---
Shift End Report: Vs stable, slept good. No complaint presented all night. No significant event reported. Continue care as planned.
[2019-11-11] MEDS: MULTIVITAMINS,THERAPEUTIC TABLET PO SCH (08:14)
[2019-11-11] MEDS: OMEGA-3 FATTY ACIDS/FISH OIL CAPSULE PO SCH (08:14)
[2019-11-11] MEDS: FUROSEMIDE 20 MG TABLET PO SCH (08:15)
[2019-11-11] MEDS: CLONIDINE HCL 0.1 MG TABLET PO SCH ×2 (08:15→17:00)
[2019-11-11] MEDS: DOCUSATE SODIUM 100 MG CAPSULE PO SCH ×2 (08:15→18:07)
[2019-11-11] MEDS: CALCIUM CARB/VITAMIN D 500MG-200UNITS TABLET PO SCH (08:15)
[2019-11-11] MEDS: SEVELAMER CARBONATE 800 MG TABLET PO SCH ×3 (08:15→18:07)
[2019-11-11] MEDS: CHOLECALCIFEROL 1,000 UNIT TABLET PO SCH (08:15)
[2019-11-11] MEDS: ASCORBIC ACID 500 MG TABLET PO SCH (08:15)
[2019-11-11] MEDS: DILTIAZEM HCL CD 240 MG CAP.SR.24H PO SCH (08:16)
[2019-11-11 08:53] VITALS: BP 143/68
--- NOTE | 2019-11-11 13:39 | NUR ---
Pt received sitting comfortably in wheelchair. No acute distress or SOB noted. Pt compliant with routine medications taking them one at a time. All comfort and safety measures implemented. Pt cooperative with therapies as offered. Call light placed within reach. Will continue to monitor.
--- NOTE | 2019-11-11 15:31 | NUR ---
Nasal swab sample collected and delivered to lab for Covid19 test. Pt teaching provided and all needs attended to at this time.
[2019-11-11 16:50] VITALS: BP 128/63
--- NOTE | 2019-11-11 18:54 | NUR ---
Covid19 negative results called in from lab.
[2019-11-11 20:13] VITALS: BP 125/67
[2019-11-11] MEDS: SENNOSIDES 1 TABLET PO SCH (20:21)
--- NOTE | 2019-11-12 04:18 | NUR ---
Received patient in bed, AAO x3. No acute distress or SOB was noted. On O2 1L via NC. No complain of pain. Patient is hard of hearing, using hearing aid on her left ear. All due medications administered and well tolerated. Lubricant applied to skin. Physical assessment done. All needs attended promptly. Safety measures maintained. Fall prevention maintained. Bed in lock position, Side rails up x2 for safety. Continue to monitor and will endorse to oncoming nurse accordingly.
[2019-11-12 05:10] VITALS: BP 120/58
[2019-11-12] MEDS: PANTOPRAZOLE SODIUM 40 MG TABLET.DR PO SCH (06:12)
[2019-11-12] MEDS: DOCUSATE SODIUM 100 MG CAPSULE PO SCH ×2 (08:09→16:50)
[2019-11-12] MEDS: SEVELAMER CARBONATE 800 MG TABLET PO SCH ×3 (08:09→17:33)
[2019-11-12] MEDS: CALCIUM CARB/VITAMIN D 500MG-200UNITS TABLET PO SCH (08:09)
[2019-11-12] MEDS: CHOLECALCIFEROL 1,000 UNIT TABLET PO SCH (08:09)
[2019-11-12] MEDS: OMEGA-3 FATTY ACIDS/FISH OIL CAPSULE PO SCH (08:09)
[2019-11-12] MEDS: CLONIDINE HCL 0.1 MG TABLET PO SCH ×2 (08:15→16:50)
[2019-11-12] MEDS: DILTIAZEM HCL CD 240 MG CAP.SR.24H PO SCH (08:15)
[2019-11-12] MEDS: MULTIVITAMINS,THERAPEUTIC TABLET PO SCH (08:15)
[2019-11-12] MEDS: ASCORBIC ACID 500 MG TABLET PO SCH (08:16)
[2019-11-12 09:13] VITALS: BP 153/83
--- NOTE | 2019-11-12 11:42 | NUR ---
Received patient awake in bed in stable condition. Patient continue therapy for increase strenght and endurance. Continue oxygen via nasal cannula for COPD. tolerated well. Patient consumed meals fairly. not in distress. no complaint of pain/discomfort. will continue monitor
--- NOTE | 2019-11-12 12:51 | NUR ---
INTERDISCIPLINARY TEAM CONFERENCE
[2019-11-12 16:17] VITALS: BP 124/57
--- NOTE | 2019-11-12 16:30 | NUR ---
Received report from Lazara RICE for reassignment. Pt in wheelchair awake AOx2. On O2 @ 1L with no SOB or distress noted at this time. Denied chest pain. Educated to use call light when need to get up, verbalized understanding.
[2019-11-12] MEDS: NEPRO (VANILLA) 237 ML CAN PO SCH (17:34)
--- NOTE | 2019-11-12 19:34 | NUR ---
Patient endorse to Candy RN for continuity of care.
[2019-11-12 20:21] VITALS: BP 133/80
[2019-11-12] MEDS: SENNOSIDES 1 TABLET PO SCH (21:06)
--- NOTE | 2019-11-12 21:35 | NUR ---
AAO x 2. Awake and alert. On continous O2 @ 1L via nasal cannula. pulse ox 90-92%. PM care done. Repositioned for comfort. Turned q2hrs. Incontinent of urine x2. Kept clean and dry. Will monitor patient. Tolerated po meds well. Fall precautions maintained. Call ryan within reach. Siderails up for safety. Bed alarm on.
[2019-11-13 04:18] VITALS: BP 154/68
[2019-11-13] MEDS: PANTOPRAZOLE SODIUM 40 MG TABLET.DR PO SCH (06:10)
--- NOTE | 2019-11-13 06:29 | NUR ---
End of shift notes: Uneventful night. Condition unchanged. No acute distress noted. Incontinent of urine x2. Kept clean and dry. Repositioned. All needs attended and met. Siderails up for safety. Bed alarm on. No respiratory distress noted. O2 @ 1L via nasal cannula maintained.
[2019-11-13 08:22] LABS: BASOPHILS # (AUTO) 0.1 K/uL (0.0-8.0); BASOPHILS % (AUTO) 0.8 % (0.0-2.0); EOSINOPHILS # (AUTO) 0.2 K/uL (0.0-0.7); EOSINOPHILS % (AUTO) 2.3 % (0.0-7.0); HEMATOCRIT 31.2 % (31.2-41.9); HEMOGLOBIN 9.9 g/dL (10.9-14.3); LYMPHOCYTES # (AUTO) 0.8 K/uL (20.0-40.0); LYMPHOCYTES % (AUTO) 10.6 % (20.5-51.5); MEAN CORPUSCULAR HEMOGLOBIN 28.1 uug (24.7-32.8); MEAN CORPUSCULAR HGB CONC 32 g/dL (32.3-35.6); MEAN CORPUSCULAR VOLUME 88.1 fL (75.5-95.3); MONOCYTES # (AUTO) 0.5 K/uL (2.0-10.0); MONOCYTES % (AUTO) 6.9 % (0.0-11.0); NEUTROPHILS # (AUTO) 6.1 K/uL (1.8-8.9); NEUTROPHILS % (AUTO) 79.4 % (38.5-71.5); PLATELET COUNT (AUTO) 215 K/uL (179-408); RED BLOOD CELL COUNT(AUTO) 3.54 MIL/uL (3.63-4.92); WHITE BLOOD COUNT (AUTO) 7.7 K/uL (3.8-11.8)
[2019-11-13 08:38] LABS: CARBON DIOXIDE 35 mmol/L (21-32); CHLORIDE 101 mmol/L (98-107); CREATININE 1.9 mg/dL (0.6-1.3); GLUCOSE 105 mg/dL (74-106); POTASSIUM 4.2 mmol/L (3.5-5.1); UREA NITROGEN, BLOOD 36 mg/dL (7-18)
[2019-11-13 08:44] LABS: ALANINE AMINOTRANSFERASE 18 U/L (14-59); ALKALINE PHOSPHATASE 78 U/L (50-136); ASPARTATE AMINOTRANSFERASE 21 U/L (15-37); BILIRUBIN,TOTAL 0.5 mg/dL (0.2-1.0); MAGNESIUM 2.3 mg/dL (1.8-2.4); PHOSPHOROUS 3.7 mg/dL (2.5-4.9); TOTAL PROTEIN, SERUM 7.7 g/dL (6.4-8.2)
[2019-11-13] MEDS: FUROSEMIDE 20 MG TABLET PO SCH (08:45)
[2019-11-13] MEDS: SEVELAMER CARBONATE 800 MG TABLET PO SCH ×3 (08:45→17:38)
[2019-11-13] MEDS: CLONIDINE HCL 0.1 MG TABLET PO SCH ×2 (08:46→17:38)
[2019-11-13] MEDS: DILTIAZEM HCL CD 240 MG CAP.SR.24H PO SCH (08:46)
[2019-11-13] MEDS: DOCUSATE SODIUM 100 MG CAPSULE PO SCH ×2 (08:46→17:37)
[2019-11-13] MEDS: MULTIVITAMINS,THERAPEUTIC TABLET PO SCH (08:46)
[2019-11-13] MEDS: CALCIUM CARB/VITAMIN D 500MG-200UNITS TABLET PO SCH (08:46)
[2019-11-13] MEDS: OMEGA-3 FATTY ACIDS/FISH OIL CAPSULE PO SCH (08:46)
[2019-11-13] MEDS: ASCORBIC ACID 500 MG TABLET PO SCH (08:47)
[2019-11-13] MEDS: NEPRO (VANILLA) 237 ML CAN PO SCH ×2 (08:53→17:37)
[2019-11-13] MEDS: CHOLECALCIFEROL 1,000 UNIT TABLET PO SCH (08:53)
[2019-11-13 10:06] VITALS: BP 166/85
[2019-11-13 15:59] VITALS: BP 150/72
[2019-11-13 20:00] VITALS: BP 128/61
[2019-11-13] MEDS: SENNOSIDES 1 TABLET PO SCH (21:20)
--- NOTE | 2019-11-13 22:00 | NUR ---
Received report from Denise RICE for reassignment. Patient in bed awake and alert able to make needs known, in no apparent distress noted , on O2 inhalation @ 1L via NC saturating well at 99%.Call light with in reach.Continue safety measures.Will continue to monitor.
[2019-11-14 04:00] VITALS: BP 155/81
[2019-11-14] MEDS: HYDROCODONE/APAP 5-325MG TABLET PO PRN ×2 (04:32→08:39)
[2019-11-14] MEDS: PANTOPRAZOLE SODIUM 40 MG TABLET.DR PO SCH (06:36)
[2019-11-14 08:00] VITALS: BP 169/81
[2019-11-14] MEDS: MULTIVITAMINS,THERAPEUTIC TABLET PO SCH (08:31)
[2019-11-14] MEDS: CLONIDINE HCL 0.1 MG TABLET PO SCH (08:32)
[2019-11-14 08:33] VITALS: BP 156/78
[2019-11-14] MEDS: SEVELAMER CARBONATE 800 MG TABLET PO SCH ×2 (08:33→12:37)
[2019-11-14] MEDS: DILTIAZEM HCL CD 240 MG CAP.SR.24H PO SCH (08:33)
[2019-11-14] MEDS: ASCORBIC ACID 500 MG TABLET PO SCH (08:33)
[2019-11-14] MEDS: CHOLECALCIFEROL 1,000 UNIT TABLET PO SCH (08:33)
[2019-11-14] MEDS: OMEGA-3 FATTY ACIDS/FISH OIL CAPSULE PO SCH (08:33)
[2019-11-14] MEDS: DOCUSATE SODIUM 100 MG CAPSULE PO SCH (08:33)
[2019-11-14] MEDS: CALCIUM CARB/VITAMIN D 500MG-200UNITS TABLET PO SCH (08:33)
[2019-11-14] MEDS: NEPRO (VANILLA) 237 ML CAN PO SCH (08:42)
--- NOTE | 2019-11-14 09:00 | NUR ---
Patient is awake, alert, not in any form of acute distress, on 1LPM oxygen via NC. Due medications administered and tolerated well. Patient complained of pain on her left hand, given PRN pain medication as ordered. Assisted patient to the bathroom to void and transferred to wheelchair for breakfast. Call light and frequently used items placed within patient's reach. Patient made aware regarding discharge plan for today and patient is agreeable. Will continue to monitor.
--- NOTE | 2019-11-14 12:56 | NUR ---
Discharge instructions provided to the patient with verbalized understanding. Discharge papers signed by and given to the patient. All belongings well accounted for and brought with the patient. Assisted with her needs. Patient remains alert, not in any form of distress on oxygen at 1LPM via NC. She denies any pain or discomfort at this time. Patient picked up by [employer] [facility] via [employer]. Patient discharged to [facility]. Addendum: 11/14/19 at 1404 by CHEYENNE ROMEO RN RN Patient picked up at 1:20PM by [employer] [facility] via [employer]
== END 2019-11-14 14:10 | disposition home health service (06) | DRG 682 ==
LOC: UNDODISIN 18:47
PROVIDERS: ADMIT Internal Medicine; ATTEND Physical Medicine & Rehabilitation Pain Medicine
PROC: 0HBRXZZ Excision of Toe Nail, External Approach (ICD-10-PCS; principal; 2019-11-06)
DX: N17.0 Acute kidney failure with tubular necrosis (principal); E43 Unspecified severe protein-calorie malnutrition; G92 Toxic encephalopathy; I50.33 Acute on chronic diastolic (congestive) heart failure; D68.59 Other primary thrombophilia; I13.0 Hypertensive heart and chronic kidney disease with heart failure and stage 1 through stage 4 chronic kidney disease, or unspecified chronic kidney disease; J98.11 Atelectasis; R53.1 Weakness; D63.8 Anemia in other chronic diseases classified elsewhere; F03.90 Unspecified dementia, unspecified severity, without behavioral disturbance, psychotic disturbance, mood disturbance, and anxiety; I25.10 Atherosclerotic heart disease of native coronary artery without angina pectoris; I67.2 Cerebral atherosclerosis; I27.20 Pulmonary hypertension, unspecified; J44.9 Chronic obstructive pulmonary disease, unspecified; K21.9 Gastro-esophageal reflux disease without esophagitis; M81.0 Age-related osteoporosis without current pathological fracture; N18.9 Chronic kidney disease, unspecified; R62.7 Adult failure to thrive; H54.7 Unspecified visual loss; I07.1 Rheumatic tricuspid insufficiency; Z87.440 Personal history of urinary (tract) infections; R26.9 Unspecified abnormalities of gait and mobility; B35.1 Tinea unguium; F17.210 Nicotine dependence, cigarettes, uncomplicated; F32.9 Major depressive disorder, single episode, unspecified; M20.41 Other hammer toe(s) (acquired), right foot; M20.42 Other hammer toe(s) (acquired), left foot; M21.612 Bunion of left foot; M21.611 Bunion of right foot; G89.29 Other chronic pain; R26.2 Difficulty in walking, not elsewhere classified; R97.0 Elevated carcinoembryonic antigen [CEA]; Z88.6 Allergy status to analgesic agent; Z88.8 Allergy status to other drugs, medicaments and biological substances
CPT/HCPCS: 36415; 71045; 82378; 83735; 84100; 85025; Q0162

== ENCOUNTER 2020-08-27 15:54 | Emergency (ER) | payer MEDICARE ==
[~2020-08-27] VITALS: Ht 162.6 cm; Wt 49.9 kg
[~2020-08-27 15:54] MED LIST changes: -ACET-2154 PO; +ACET325T53 PO; -ASCO500C18 PO; +ASCO500T21 PO; -CHOL400T32 PO; -DEXT15DR6 OP; -FURO-152 PO; +FURO20TA4 PO; +HYDR-3972 PO; +HYDR-894 PO; -HYDR2TAB4 PO; -LOSA25TA27 PO; +MENT71OI TOP; +OMEG1CAP PO; +PANT40TA2 PO; +POLY15DR27 EACHEYE; -POTA10CA43 PO; +SEVE800T7 PO; +TEMA7.5C PO
--- NOTE | 2020-08-27 16:06 | NUR ---
Dr Yusuf at the bedside for MSE.
[2020-08-27] MEDS ORDERED: TETRACAINE HCL 0.5% OPHT DROP 2 ML BOTTLE ONE (16:16)
[2020-08-27] MEDS ORDERED: FLUORESCEIN SODIUM 1 MG STRIP ONE (16:54)
[2020-08-27] MEDS ORDERED: OXYC-133 PO (17:32)
[2020-08-27] MEDS ORDERED: TETRACAINE HCL 0.5% OPHT DROP 2 ML BOTTLE OP ONE ×2 (18:00→18:15)
[2020-08-27] MEDS ORDERED: FLUORESCEIN SODIUM 1 MG STRIP OP ONE ×2 (18:00→18:15)
[2020-08-27] MEDS ORDERED: VALA500T34 PO (18:03)
[2020-08-27] MEDS ORDERED: MOXI3DRO EACHEYE (18:03)
[2020-08-27] MEDS ORDERED: VALACYCLOVIR HCL 500 MG TABLET PO ONE (18:15)
[2020-08-27] MEDS ORDERED: VALACYCLOVIR HCL 500 MG TABLET ONE (18:32)
--- NOTE | 2020-08-27 18:37 | NUR ---
Place a call to [address] [place] [address] @ for BLS transfer ETA 2029, [facility] facility aware of Pt'e return and provided scripts.
--- NOTE | 2020-08-27 19:00 | NUR ---
Received report from DWAYNE Alcantar.
--- NOTE | 2020-08-27 19:50 | NUR ---
Spoke with Susu Neves, made aware that patient is returning to their facility after 2030.
--- NOTE | 2020-08-27 20:48 | NUR ---
Followed up with [facility], spoke with Lebron. ETA is another 25-30 min max.
[2020-08-27 21:32] VITALS: BP 149/79
--- NOTE | 2020-08-27 21:32 | NUR ---
Patient discharged to her long term facility in stable condition. Written and verbal after care instructions given to her and [facility] ambulance crew 205. Patient verbalizes understanding of instructions. Stressed follow up or return to ER for worsening s/s. Patient ambulates with steady gait, V/S stable, [facility] ambulance crew 205 given paper Rx/ER summary report/discharge paperwork, and left with all personal belongings.
== END 2020-08-27 21:32 ==
LOC: ER 15:56
DX: S05.01XA Injury of conjunctiva and corneal abrasion without foreign body, right eye, initial encounter (principal); X58.XXXA Exposure to other specified factors, initial encounter; Y92.129 Unspecified place in nursing home as the place of occurrence of the external cause; H40.9 Unspecified glaucoma; Z79.899 Other long term (current) drug therapy; J44.9 Chronic obstructive pulmonary disease, unspecified; G31.84 Mild cognitive impairment of uncertain or unknown etiology; Z88.6 Allergy status to analgesic agent; Z88.8 Allergy status to other drugs, medicaments and biological substances; I50.9 Heart failure, unspecified; M81.0 Age-related osteoporosis without current pathological fracture; F32.9 Major depressive disorder, single episode, unspecified; M19.90 Unspecified osteoarthritis, unspecified site; M10.9 Gout, unspecified
CPT/HCPCS: A4663